=== PATIENT | male | born 1990 | race Hispanic/Latino ===

== ENCOUNTER 2019-09-08 22:54 | Emergency (ER) | payer SELFPAY ==
--- NOTE | 2019-09-08 23:37 | RAD ---
Exam:Left elbow 4 views HISTORY: Pain x4 days. COMPARISON: None FINDINGS: No joint effusion. No malalignment. No fracture. Preserved joint spaces. IMPRESSION: No fracture.
== END 2019-09-09 01:02 | disposition home or self-care (01) ==
LOC: ERS 22:54
DX: S50.02XA Contusion of left elbow, initial encounter (principal); W22.8XXA Striking against or struck by other objects, initial encounter

== ENCOUNTER 2020-07-23 21:29 | Emergency (ER) | payer SELFPAY | END 2020-07-23 23:28 | disposition home or self-care (01) | LOC: ERS 21:29 | DX: M25.562 Pain in left knee (principal) | CPT/HCPCS: 36416 ==